=== PATIENT | male | born 1950 ===

== ENCOUNTER → 2017-07-18 | Outpatient (CLI) | payer OTHER | END | disposition home or self-care (01) | LOC: RAD 11:39 | DX: M84.359A Stress fracture, hip, unspecified, initial encounter for fracture (principal) ==

== ENCOUNTER 2018-08-13 11:02 | Outpatient (CLI) | payer OTHER | END 2018-08-13 11:03 | disposition home or self-care (01) | LOC: RAD 11:02 | DX: J45.998 Other asthma (principal) ==

== ENCOUNTER 2020-09-26 21:39 | Emergency (ER) | payer OTHER ==
[~2020-09-26] VITALS: Ht 170.2 cm; Wt 77.1 kg
[2020-09-27] MEDS ORDERED: MELOXICAM7.5 MG PO (05:07)
[2020-09-27] MEDS ORDERED: LEVOFLOXACIN500 MG PO (05:07)
[2020-10-09] MEDS ORDERED: ACETAMINOPHEN650 M2 (19:04)
== END 2020-09-27 05:19 | disposition home or self-care (01) ==
LOC: ER 21:39
DX: N45.1 Epididymitis (principal); N43.2 Other hydrocele; N50.812 Left testicular pain

== ENCOUNTER 2021-05-04 08:36 | Outpatient (CLI) | payer OTHER ==
[~2021-05-04 08:36] MED LIST: ACETAMINOPHEN650 M2; LEVOFLOXACIN500 MG PO; MELOXICAM7.5 MG PO
== END 2021-05-04 08:44 | disposition home or self-care (01) ==
LOC: RAD 08:36
PROVIDERS: ATTEND Specialist
DX: J45.998 Other asthma (principal)

== ENCOUNTER 2021-05-28 19:58 | Emergency (ER) | payer OTHER ==
[~2021-05-28] VITALS: Ht 162.6 cm; Wt 72.6 kg
[2021-05-28] MEDS ORDERED: EZALLOR SPRINKL40 MG PO (20:20)
[2021-05-28] MEDS ORDERED: JARDIANCE25 MG PO (20:20)
[2021-05-28] MEDS ORDERED: BAYER THERAPY325 MG (20:20)
[2021-05-28] MEDS ORDERED: AVAPRO75 MG PO (20:20)
[2021-05-28] MEDS ORDERED: GLIPIZIDE ER5 MG PO (20:21)
== END 2021-05-28 21:59 | disposition home or self-care (01) ==
LOC: ER 19:58
DX: M54.50 Low back pain, unspecified (principal); Z86.79 Personal history of other diseases of the circulatory system; Z86.39 Personal history of other endocrine, nutritional and metabolic disease

== ENCOUNTER 2021-05-29 12:18 | Inpatient (IN) | payer OTHER ==
[~2021-05-29] VITALS: Ht 167.6 cm; Wt 72.6 kg
[~2021-05-29 12:18] MED LIST changes: +AVAPRO75 MG PO; +BAYER THERAPY325 MG; +EZALLOR SPRINKL40 MG PO; +GLIPIZIDE ER5 MG PO; +JARDIANCE25 MG PO
[2021-05-31] MEDS ORDERED: EZETIMIBE10 MG (15:27)
[2021-05-31] MEDS ORDERED: JANUVIA100 MG (15:27)
[2021-05-31] MEDS ORDERED: FENOFIBRATE160 MG (15:27)
== END 2021-06-03 22:38 | DRG 65 ==
LOC: ER 12:18 → MEDJ 19:08
PROVIDERS: ADMIT Specialist; ATTEND Specialist
PROC: B020ZZZ Computerized Tomography (CT Scan) of Brain (ICD-10-PCS; principal; 2021-05-29)
PROC: B030YZZ Magnetic Resonance Imaging (MRI) of Brain using Other Contrast (ICD-10-PCS; 2021-05-29)
PROC: B345ZZZ Ultrasonography of Bilateral Common Carotid Arteries (ICD-10-PCS; 2021-05-29)
PROC: B348ZZZ Ultrasonography of Bilateral Internal Carotid Arteries (ICD-10-PCS; 2021-05-29)
PROC: B246ZZZ Ultrasonography of Right and Left Heart (ICD-10-PCS; 2021-05-29)
DX: I63.411 Cerebral infarction due to embolism of right middle cerebral artery (principal); G81.94 Hemiplegia, unspecified affecting left nondominant side; I11.9 Hypertensive heart disease without heart failure; F17.210 Nicotine dependence, cigarettes, uncomplicated; Z20.822 Contact with and (suspected) exposure to COVID-19; E11.9 Type 2 diabetes mellitus without complications; Z79.84 Long term (current) use of oral hypoglycemic drugs; E78.5 Hyperlipidemia, unspecified
CPT/HCPCS: 70552

== ENCOUNTER 2024-03-04 07:52 | Outpatient (CLI) | payer OTHER ==
[~2024-03-04 07:52] MED LIST changes: +EZETIMIBE10 MG; +FENOFIBRATE160 MG; +JANUVIA100 MG
== END 2024-03-04 08:01 | disposition home or self-care (01) ==
LOC: RAD 07:52
PROVIDERS: ATTEND Internal Medicine
DX: Z13.83 Encounter for screening for respiratory disorder NEC (principal)